=== PATIENT | male | born 1955 ===

== ENCOUNTER 2019-02-24 09:15 | Outpatient (RCR) | payer MEDICARE ==
[~2019-02-24 09:15] MED LIST: LIDOCAINE/PRILOCAINE 2.5-2.5% KIT ONE
== END 2019-02-27 | disposition home or self-care, planned readmission (81) ==
LOC: WCC 09:15
PROVIDERS: ATTEND Family Medicine Adult Medicine
DX: S31.819A Unspecified open wound of right buttock, initial encounter (principal); S31.829A Unspecified open wound of left buttock, initial encounter; S31.809A Unspecified open wound of unspecified buttock, initial encounter; I10 Essential (primary) hypertension; E78.01 Familial hypercholesterolemia; M13.80 Other specified arthritis, unspecified site; W10.1XXA Fall (on)(from) sidewalk curb, initial encounter

== ENCOUNTER 2019-03-24 08:57 | Outpatient (RCR) | payer MEDICARE | END 2019-03-30 | disposition home or self-care, planned readmission (81) | LOC: WCC 08:57 | PROVIDERS: ATTEND Family Medicine Adult Medicine | DX: S31.829A Unspecified open wound of left buttock, initial encounter (principal); S31.819A Unspecified open wound of right buttock, initial encounter; S31.809A Unspecified open wound of unspecified buttock, initial encounter; I10 Essential (primary) hypertension; M13.80 Other specified arthritis, unspecified site; E78.01 Familial hypercholesterolemia; W10.1XXA Fall (on)(from) sidewalk curb, initial encounter ==